=== PATIENT | female | born 1940 | race Two or more races ===

== ENCOUNTER 2023-06-04 04:45 | Day surgery (SDC) | payer OTHER ==
[~2023-06-04 04:45] MED LIST: HORIZANT300 MG PO; LOSARTAN POTASS50 MG PO; ZOLOFT50 MG PO
[2023-06-04] MEDS ORDERED: MACROBID 100 M100 MG PO (10:50)
[2023-06-04] MEDS ORDERED: TRAM1TAB98 PO (10:51)
== END 2023-06-04 14:10 | disposition home or self-care (01) ==
LOC: CIR.AMB 04:45
PROVIDERS: ATTEND Obstetrics & Gynecology Gynecology
DX: N81.11 Cystocele, midline (principal); N89.4 Leukoplakia of vagina; N81.6 Rectocele; K46.9 Unspecified abdominal hernia without obstruction or gangrene; I10 Essential (primary) hypertension